=== PATIENT | female | born 1950 | race Two or more races ===

== ENCOUNTER 2019-03-20 22:08 | Emergency (ER) | payer MEDICARE, OTHER ==
[~2019-03-20] VITALS: Ht 152.4 cm; Wt 86.2 kg
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
[2019-03-20] MEDS ORDERED: ALPRAZOLAM 0.25 MG TABLET PO ONE (23:00)
[2019-03-20] MEDS ORDERED: ALPRAZOLAM 0.25 MG TABLET ONE (23:17)
[2019-03-20 23:19] LABS: BASOPHILS % (AUTO) 0.2 % (0.0-2.0); EOSINOPHILS % (AUTO) 1.2 % (0.0-6.0); HEMATOCRIT 42 % (33-45); HEMOGLOBIN 14.2 g/dL (11.5-14.8); LYMPHOCYTES # (AUTO) 2.5 /CMM (0.8-4.8); LYMPHOCYTES % (AUTO) 23.3 % (20.0-44.0); MEAN CORPUSCULAR HGB CONC 34 g/dl (31.0-36.0); MEAN CORPUSCULAR VOLUME 90 fL (82-100); MONOCYTES % (AUTO) 9.5 % (2.0-12.0); NEUTROPHILS % (AUTO) 65.8 % (43.0-81.0); PLATELET COUNT (AUTO) 331 /CMM (150-450); RED BLOOD CELL COUNT(AUTO) 4.63 MIL/uL (4.0-5.2); WHITE BLOOD COUNT (AUTO) 10.6 K/uL (4.3-11.0)
[2019-03-20 23:26] LABS: CALCIUM, SERUM 9.8 mg/dL (8.5-10.1); CARBON DIOXIDE 31 mmol/L (21-32); CHLORIDE 101 mmol/L (98-107); CREATININE 0.5 mg/dL (0.6-1.3); GLUCOSE 184 mg/dL (74-106); POTASSIUM 4.3 mmol/L (3.5-5.1); SODIUM SERUM 137 mmol/L (136-145); UREA NITROGEN, BLOOD 10 mg/dL (7-18)
--- NOTE | 2019-03-21 00:14 | NUR ---
HEARD PATIENT SCREAM, I IMMEDIATELY WENT TO THE ROOM TO CHECK AND THE PATIENT WAS SPEAKING AND SLOVENIAN.
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
--- NOTE | 2019-03-21 01:20 | NUR ---
[employer] AT BEDSIDE
--- NOTE | 2019-03-21 02:05 | NUR ---
ATTEMPTED TO CALL DESTINEE SHANKS, NO ANSWER.
--- NOTE | 2019-03-21 02:17 | NUR ---
ATTEMPTED TO CALL DESTINEE SHANKS, NO ANSWER.
--- NOTE | 2019-03-21 02:49 | NUR ---
ATTEMPTED TO CALL DESTINEE SHANKS, NO ANSWER.
--- NOTE | 2019-03-21 04:22 | NUR ---
PT ASLEEP, NO ACUTE DISTRESS NOTED, RESP EVEN AND UNLABORED. CALL LIGHT WITHIN REACH. WILL CONTINUE TO MONITOR PT CLOSELY.
--- NOTE | 2019-03-21 05:57 | NUR ---
IV removed. Catheter intact and site benign. Pressure and 4x4 applied to site. No bleeding noted. Patient discharged to home in stable condition. Written and verbal after care instructions given. Patient verbalizes understanding of instruction. ambulatory with a steady gait noted. pt aaox4 no acute distress noted, resp even and unlabored.pt denies pain or discomfort at this time.
[2019-03-21 05:59] VITALS: BP 132/68
== END 2019-03-21 06:00 | disposition home or self-care (01) ==
LOC: ER 22:12
DX: F41.9 Anxiety disorder, unspecified (principal); E11.9 Type 2 diabetes mellitus without complications; I10 Essential (primary) hypertension; E78.5 Hyperlipidemia, unspecified; Z90.49 Acquired absence of other specified parts of digestive tract
CPT/HCPCS: 36415; 80048-TC; 84484-TC; 85025-TC